=== PATIENT | male | born 2000 | race Caucasian/White ===

== ENCOUNTER 2023-11-28 17:24 | Emergency (ER) | payer OTHER ==
[~2023-11-28] VITALS: Ht 165.1 cm; Wt 104.3 kg
[~2023-11-28 17:24] MED LIST: MIRABULK PO
[2023-11-28 17:29] VITALS: BP 125/71; PULSE 70; RESP 20; TEMP 98.8; O2SAT 99
[2023-11-28] MEDS: IBUPROFEN 600 MG TAB PO ONE (18:17)
[2023-11-28] MEDS ORDERED: IBUP-2213 PO (18:25)
[2023-11-28 18:42] VITALS: BP 125/71; PULSE 70; RESP 20; TEMP 98.8; O2SAT 99
== END 2023-11-28 18:43 | disposition home or self-care (01) ==
LOC: MED 17:24
DX: S93.401A Sprain of unspecified ligament of right ankle, initial encounter (principal); S80.11XA Contusion of right lower leg, initial encounter; Z79.899 Other long term (current) drug therapy; W50.2XXA Accidental twist by another person, initial encounter; Y93.89 Activity, other specified; Y92.89 Other specified places as the place of occurrence of the external cause; Y99.8 Other external cause status
CPT/HCPCS: 73590; 73610; 99284; Q0092